=== PATIENT | male | born 1975 | race Asian ===

== ENCOUNTER 2018-07-11 14:00 | Emergency (ER) | payer OTHER ==
[~2018-07-11] VITALS: Ht 180.3 cm; Wt 106.6 kg
[2018-07-11 19:38] VITALS: BP 145/98; TEMP 97.8
== END 2018-07-11 19:55 | disposition home or self-care (01) ==
LOC: ED 14:06
PROC: 0HQDXZZ Repair Right Lower Arm Skin, External Approach (ICD-10-PCS; principal; 2018-07-11)
DX: S51.021A Laceration with foreign body of right elbow, initial encounter (principal); S40.211A Abrasion of right shoulder, initial encounter; S60.811A Abrasion of right wrist, initial encounter; S60.512A Abrasion of left hand, initial encounter; W17.89XA Other fall from one level to another, initial encounter; Y93.55 Activity, bike riding
CPT/HCPCS: 90715; 96372; 99283; J1885